=== PATIENT | male | born 1975 | race Caucasian/White ===

== ENCOUNTER 2018-05-18 14:30 | Emergency (ER) | payer OTHER ==
[2018-05-18 14:40] VITALS: BP 134/90; PULSE 110; TEMP 98.5; BMI 24.0
[2018-05-18] MEDS ORDERED: FAMOTIDINE 20 MG/50 ML IVPB 20 MG/50 ML MG IVPB ONE ×2 (15:19→15:36)
--- NOTE | 2018-05-18 15:19 | PDOC ---
History of Present Illness - General Chief Complaint: Pain, Acute Stated Complaint: STOMACH PAIN/VOMITING Time Seen by Provider: 05/18/18 15:09 History Source: Patient - History of Present Illness Timing/Duration: reports: constant Abdominal Pain Onset Location: reports: epigastric Pain Radiation: reports: no radiation Past History - Past Medical History Allergies/Adverse Reactions: Allergies Allergy/AdvReac Type Severity Reaction Status Date / Time No Known Allergies Allergy Verified 05/18/18 14:37 Home Medications: Ambulatory Orders Metformin HCl [Glucophage] 0 mg PO DAILY 05/18/18 Metformin HCl [Glucophage] 1,000 mg PO DAILY #60 tablet 05/18/18 COPD: No Diabetes: Yes HTN: Yes - Suicide/Smoking/Psychosocial Hx Smoking History: Never smoked Have you smoked in the past 12 months: No Information on smoking cessation initiated: No Hx Alcohol Use: No Drug/Substance Use Hx: No Review of Systems - Review of Systems Constitutional: No: Chills, Fever Respiratory: No: Shortness of Breath Cardiac (ROS): No: Chest Pain ABD/GI: Yes: Nausea, Vomiting, Abdominal cramping. No: Blood Streaked Bowels, Constipated, Diarrhea, Rectal Bleeding, Tarry Stools : No: Dysuria, Discharge, Frequency, Flank Pain, Hematuria Musculoskeletal: No: Back Pain *Physical Exam - Vital Signs Last Vital Signs Temp Pulse Resp BP Pulse Ox 98.5 F 110 H 18 134/90 97 05/18/18 14:38 05/18/18 14:38 05/18/18 14:38 05/18/18 14:38 05/18/18 14:38 - Physical Exam General Appearance: Yes: Appropriately Dressed. No: Apparent Distress HEENT: positive: Normal Voice Neck: positive: Supple Respiratory/Chest: positive: Lungs Clear, Normal Breath Sounds. negative: Respiratory Distress Cardiovascular: positive: Regular Rate, S1, S2 Gastrointestinal/Abdominal: positive: Normal Bowel Sounds, Tender (epigastrium only), Soft. negative: Pulsatile Mass, Distended, Guarding, Rebound Musculoskeletal: negative: CVA Tenderness Extremity: positive: Normal Inspection Integumentary: positive: Dry, Warm Neurologic: positive: Fully Oriented, Alert, Normal Mood/Affect Moderate Sedation - Procedure Monitoring Vital Signs: Procedure Monitoring Vital Signs Temperature 98.5 F 05/18/18 14:38 Pulse Rate 110 H 05/18/18 14:38 Respiratory Rate 18 05/18/18 14:38 Blood Pressure 134/90 05/18/18 14:38 O2 Sat by Pulse Oximetry (%) 97 05/18/18 14:38 ED Treatment Course - LABORATORY CBC & Chemistry Diagram: 05/18/18 15:30 05/18/18 15:30 Medical Decision Making - Medical Decision Making 05/18/18 15:16 42-year-old male diagnosed with diabetes and hypertension over a year ago and has not taken any of his medication in months and lost to f/u, here with epigastric pain with nausea, vomiting since last night. No change in bowel movements, melena, bright red blood per rectum, fever or chills. Drinks alcohol socially. States he had similar symptoms in the past and that was when he was told he had diabetes per patient. No h/o DKA See exam Epigastric pain w/ n/v Gastritis/GERD vs less likely biliary source, pancreatitis, renal colic or uti/ pyelo, r/o DKA Exam remarkable for tachy to 110 w/ +ttp to epigastrium -trial of GI cocktail -IVF -labs -reassess 05/18/18 15:25 05/18/18 17:11 Labs remarkable for blood glucose of 252 and 3+ glucose on UA. No acetone or gap. Patient reports significant improvement with GI cocktail given here. Able to tolerate po. Patient now reports he has no insurance. Is able to purchase Pepcid and Maalox [id number] and use as directed. States he is also willing to purchase metformin if I refill his medication. Pt is on antihypertensive as well but does not currently remember name of medication. Blood pressure here 134/90. Patient given follow-up at [facility] to establish primary care *DC/Admit/Observation/Transfer Diagnosis at time of Disposition: Epigastric abdominal pain - Discharge Dispostion Disposition: HOME Condition at time of disposition: Improved - Prescriptions Prescriptions: Metformin HCl [Glucophage] 1,000 mg PO DAILY #60 tablet - Referrals - Patient Instructions Printed Discharge Instructions: Gastritis Additional Instructions: Te trataron por posible gastritis. Belle pepcid y maalox de venta paul segn las indicaciones y evite la comida picante, la cafena y el alcohol. Tu azcar aqu fue en los aos 89. Reanudar tu metformina para prevenir complicaciones. Por favor daniel un seguimiento en [facility] [phone] Print Language: DUTCH - Post Discharge Activity
[2018-05-18] MEDS ORDERED: MAG HYDROX/AL HYDROX/SIMETH -MYLANTA- ORAL SUSPENSION PO ONE (15:20)
[2018-05-18] MEDS ORDERED: ONDANSETRON 4 MG/2 ML VIAL IVPUSH ONE (15:20)
[2018-05-18] MEDS ORDERED: SODIUM CHLORIDE 1,000 ML IV STA (15:20)
--- NOTE | 2018-05-18 15:28 | PDOC ---
*Physical Exam - Vital Signs Last Vital Signs Temp Pulse Resp BP Pulse Ox 98.5 F 110 H 18 134/90 97 05/18/18 14:38 05/18/18 14:38 05/18/18 14:38 05/18/18 14:38 05/18/18 14:38 Medical Decision Making - Medical Decision Making 05/18/18 15:28 Pt seen by the Advanced Practice Provider under my direct supervision Ancillary studies reviewed I agree with plan as outlined by the Advanced Practice Provider VINI Parrish
[2018-05-18] MEDS ORDERED: MAG HYDROX/AL HYDROX/SIMETH 30 ML UNIT-DOSE CUP ONE (15:35)
[2018-05-18] MEDS ORDERED: ONDANSETRON 4 MG/2 ML VIAL ONE (15:36)
[2018-05-18 15:54] LABS: BASO % 0.4 % (0-2.0); EOS % 1.4 % (0-4.5); HEMATOCRIT 47.1 % (35.4-49); HEMOGLOBIN 16.8 GM/dL (11.7-16.9); LYMPH % 14.7 % (8-40); MCH 30.3 pg (25.7-33.7); MCHC 35.6 g/dl (32.0-35.9); MEAN CELL VOLUME 85.2 fl (80-96); MEAN PLT VOLUME 8.6 fl (7.5-11.1); MONO % 4.8 % (3.8-10.2); NEUT % 78.7 % (42.8-82.8); PLATELET COUNT 205 K/MM3 (134-434); RBC 5.53 M/mm3 (4.00-5.60); RDW 12.6 % (11.9-15.9); WHITE BLOOD COUNT 8.2 K/mm3 (4.0-10.0)
[2018-05-18 16:13] LABS: ALBUMIN 3.8 g/dl (3.4-5.0); ALK PHOS 71 U/L (45-117); ANION GAP 8 MMOL/L (8-16); BILIRUBIN,TOTAL 0.6 mg/dL (0.2-1); BLOOD UREA NITROGEN 12 mg/dL (7-18); CALCIUM 8.4 mg/dL (8.5-10.1); CHLORIDE 102 mmol/L (98-107); CO2 25 mmol/L (21-32); CREATININE 0.6 mg/dL (0.55-1.3); GLUCOSE,RANDOM 272 mg/dL (74-106); LIPASE 115 U/L (73-393); POTASSIUM 3.4 mmol/L (3.5-5.1); SGOT/AST 29 U/L (15-37); SGPT/ALT 53 U/L (13-61); SODIUM 135 mmol/L (136-145); TOT PROT 6.9 g/dl (6.4-8.2)
[2018-05-18 17:01] LABS: URINE APPEARANCE CLEAR; URINE BILIRUBIN NEGATIVE (<2.0 mg/dL); URINE COLOR YELLOW; URINE GLUCOSE (UA) 3+ (NEGATIVE); URINE KETONE TRACE (NEGATIVE); URINE LEUK ESTERASE TRACE (NEGATIVE); URINE NITRITE NEGATIVE (NEGATIVE); URINE PROTEIN 1+ (NEGATIVE); URINE UROBILINOGEN 4.0 E.U/dl mg/dL (0.2-1.0)
[2018-05-18 17:13] LABS: EPI CELLS RARE /HPF (FEW); URINE MUCUS FEW
== END 2018-05-18 17:31 | disposition home or self-care (01) ==
LOC: JER 14:30
PROC: 3E033GC Introduction of Other Therapeutic Substance into Peripheral Vein, Percutaneous Approach (ICD-10-PCS; principal; 2018-05-18)
PROC: 3E033GC Introduction of Other Therapeutic Substance into Peripheral Vein, Percutaneous Approach (ICD-10-PCS; 2018-05-18)
DX: K29.70 Gastritis, unspecified, without bleeding (principal); I10 Essential (primary) hypertension; E11.9 Type 2 diabetes mellitus without complications; Z79.84 Long term (current) use of oral hypoglycemic drugs; Z91.14 Patient's other noncompliance with medication regimen
CPT/HCPCS: 36415; 80053; 81003; 81015; 82009; 83690; 85025; 96365; 96375; 99282-25; J7030